=== PATIENT | male | born 1980 | race Caucasian/White ===

== ENCOUNTER 2016-10-02 07:59 | Inpatient (IN) | payer MEDICAID ==
[~2016-10-02] VITALS: Ht 167.6 cm; Wt 78.6 kg
--- NOTE | ~2016-10-02 | ECH ---
Transthoracic Echocardiography Report (TTE) Demographics Patient Name NIRAV VÁSQUEZ Date of Study 10/07/2016 ROB Patient Number [id number] Visit Number [id number] Date of 1980 Room Number 308 Gender Male Number Age 36 year(s) Referring Ivan Britton MD Pharmacy Services Representative Leidy Martinez Physician Mariza Coleman MD [facility] Physician Interpreting [facility] Sean Signal Processing Engineer Physician R Supervising Ordering Mariza Coleman MD/MLP Physician Nurse Stress Family Consumer Scientist Conclusions Summary Technically adequate exam. The estimated left ventricular ejection fraction is 55%. Diastolic assessment reveals Grade I diastolic dysfunction. No significant valvular abnormalities. No evidence of significant regurgitant valvular abnormalities. Procedure Type of Study TTE procedure:Echo Complete SF. Procedure Date Date: 10/07/2016 Start: 02:07 PM Technical Quality: Adequate visualization Additional Indications:Bacteremia,Severe ETOH abuse/withdrawl Appropriate Use Criteria: 9 Height: 66 inches Weight: 180 pounds BSA: 1.91 m Rhythm: Sinus tachycardia HR: 108 bpm BP: 121/63 mmHg M-Mode/2D Measurements LV Diastolic Dimension: 5.46 cm LV Systolic Dimension: 5.25 cm LV Septum Diastolic: 0.7 cm LV PW Diastolic: 0.74 cm AO Root Dimension: 3.06 cm Cardiac Output: 5.33 l/min LA Dimension: 3.06 cm Cardiac Index: 2.79 l/min*m RV Diastolic Dimension: 3.15 cm LA volume index: 17 ml/m LVOT: 2.03 cm LVOT VTI: 15.27 cm RV Base: 2.3 cm LV Stroke volume: 49.4 ml RV Mid: 1.7 cm LV Stroke volume index: 25.86 ml/m TAPSE: 2.2 cm TDI-S': 12 cm/s Doppler Measurements AV Peak Velocity: 1.3 m/s MV Peak E-Wave: 0.64 m/s AV Peak Gradient: 6.76 mmHg MV Peak A-Wave: 0.8 m/s AV Mean Gradient: 4.51 mmHg MV E/A Ratio: 0.8 LVOT Peak Velocity: 1.09 m/s MV P1/2t: 38.5 msec AV Area (Continuity):2.7 cm MV Deceleration Time: 132.6 msec MV Area (PHT): 5.72 cm PV Peak Velocity: 0.99 m/s E' Septal Velocity: 0.1 m/s PV Peak Gradient: 3.94 mmHg E' Lateral Velocity: 0.11 m/s A' Septal Velocity: 0.12 m/s A' Lateral Velocity: 0.14 m/s RA Area: 9.6 cm Findings Left Ventricle Normal left ventricle size and function. Diastolic assessment reveals Grade I diastolic dysfunction. Right Ventricle Normal right ventricle structure and function. Left Atrium Normal left atrial size. Right Atrium Normal right atrial size. Mitral Valve Normal mitral valve structure and function. Trivial mitral regurgitation by color Doppler. Aortic Valve Normal aortic valve structure and function. Tricuspid Valve Normal tricuspid valve structure and function. Trivial tricuspid regurgitation by color Doppler. Insufficient jet to calculate pulmonary pressures. Pulmonic Valve Normal pulmonic valve structure and function. Pericardial Effusion No evidence of pericardial effusion. Miscellaneous Visualized portions of the aortic root and ascending aorta appear normal in size. Pleural Effusion No evidence of pleural effusion. Contractility Score LV regional wall motion:(0-Non visualized 1-Normal 2-Hypokinesis 3-Akinesis 4-Dyskinesis 5-Aneurysm) Signature
[~2016-10-02 07:59] MED LIST: CARAFATE DPS1 GM PO; CATAPRES-DPS0.1 MG PO; DESYREL-DPS50 MG PO; FOLVITE-DPS1 MG PO; KLOR-CON M2020 ME1 PO; LIBRIUM-DPS25 MG PO; MAALOX DPS30 ML PO; PEPCID DPS20 MG PO; PEPCID20 MG PO; PRILOSEC DPS20 MG PO; PROTONIX40 MG PO; SURFAK DPS240 MG PO; THERAPEUTIC MUL1 TAB PO; TOPROL XL DPS25 MG PO; TYLENOL325 MG PO; ZOLOFT50 MG PO
--- NOTE | 2016-10-02 21:02 | HP ---
ADMIT: 10/02/2016 RM/LOC: 308 [facility] MR#: [id number] [address] [place], [place] [address] NIRAV VÁ[place] [address] History and Physical SEX: M AGE: 36 : 1980 DATE OF SERVICE: CHIEF COMPLAINT: Intoxication and stomach pain. HISTORY OF PRESENT ILLNESS: This is a 36-year-old gentleman who admits that he was drinking "a lot" at home. His actually called 911 because she reported he was falling and saying his stomach hurt. He was brought to the emergency room, found to have a blood alcohol level of 500 with the legal cut off being 80. His electrolytes showed potassium 3.1, lipase was 836. Liver enzymes are slightly elevated as well. He had some abrasions around his head including ecchymosis around the right eye and swollen lip. He had CT scan of the head showing no obvious acute findings. He is a very poor historian. He told to ER doc stomach hurt and he just would grimace with palpation in the midline. Otherwise, history was mainly from his or from old records. The patient was hospitalized here in May of 2016, for similar reason with alcohol intoxication and elevated pancreatic enzymes. He has been through alcohol treatment in the past. Most recent that I can see was in 2008. PAST MEDICAL HISTORY: Again, is taken from old records. It is remarkable for multiple hospital admissions for alcohol use and acute intoxication. He also has prior admission for pancreatitis. There is a reported history of fatty liver disease. SOCIAL HISTORY: He is . His is the one who called 911. He reports drinking "2 bottles" of alcohol per day and past reports document that he was drinking up to a 5th of vodka daily and beer. He cannot tell me right now precisely what and how much he has been drinking. FAMILY HISTORY: Mother with heart disease. No other history is obtainable. REVIEW OF SYSTEMS: Unobtainable. The only thing he was able to explain to me is that his stomach hurts, and he waves his hand around the middle of his abdomen. When I asked him specifically about headache or vision changes, he told me no. Otherwise, he did not give me any other reports or history. PHYSICAL EXAMINATION: VITAL SIGNS: Heart rate in the 110s to 120s and blood pressure 118/82. He is afebrile, oxygen 99%, he is on 2 L of O2 because of his sound sleep and small brief episodes of apnea due to his intoxication. ENT: Purple ecchymosis and a little bit of swelling over the right eye on the upper eyelid. Sclerae are injected bilaterally. Extraocular movements appear okay, but he did not follow directions completely enough to do a good exam. There is no obvious facial droop. His upper lip is swollen with some superficial cuts on the mucosal side on the left upper lip. He extends his tongue in the midline. Tongue looks dry. There is some dried blood in the mouth, but I do not see any obvious sores that are visible. NECK: Supple. LUNGS: Sounded clear anteriorly. HEART: Regular. ADMIT: 10/02/2016 RM/LOC: 308 [facility] MR#: [id number] [address] [place] [id number] ROB NIRAV HAAS [address] [place] [address] History and Physical SEX: M AGE: 36 : 1980 ABDOMEN: With bowel sounds, but they are very quiet mainly heard on the right side. EXTREMITIES: No edema. He has a couple of scrapes and abrasions. He has a 2 cm abrasion on the left knee that is superficial and not bleeding. He is not arousable enough to do a full neurologic exam. LABORATORY WORK: Sodium 142, potassium 3.1 and on recheck was 3.4 four hours later after he had fluid. Other electrolytes are normal. His creatinine is 0.78. Bilirubin is 1.2. Albumin 3.3. AST is 406, ALT 177. His lipase is 836. Corrected calcium is 8.3. The alcohol level was 508 mg/dL and 4 hours later was 448 mg/dL after fluids. CBC is unremarkable with a white count of 8.6, platelet count 150, and hemoglobin 14.6. CT of the head. Was negative except right preseptal soft tissue swelling, and CT of the maxillofacial bones was also undertaken in the emergency room and showed no evidence of fracture. ASSESSMENT: 1. Pancreatitis. 2. Acute alcohol intoxication with chronic alcohol abuse. 3. Abrasions. 4. Hypokalemia. PLAN: The patient was admitted to intensive care. In his past records, I see multiple hospital stays for intoxication and no report of seizures. Apparently in the past, he has reported hallucinations when he is intoxicated. We will use the alcohol withdrawal protocol. He has IV fluids running to replace potassium. I will slow down the rate since his potassium level is coming up. We will also continue the "banana bag" for fluids and vitamins with thiamine. When he is more awake if he wants ADMIT: 10/02/2016 RM/LOC: 308 [facility] MR#: [id number] [address] [address] NIRAV VÁSQUEZ [address] [place] [address] History and Physical SEX: M AGE: 36 : 1980 to try to drink, we will just do ice chips for tonight and recheck his liver enzymes and lipase tomorrow before let him start on any sort of diet. We will of course consult ADTC. Looks like, he started treatment in the past about 8 years ago, and we will see if he is interested and willing in doing that again. He apparently made a comment to his that he wanted to quit drinking. I also ordered drug screen and that is pending. We will use no medical anticoagulation for VTE prophylaxis, but just use foot garments and calf garments. Total of 40 minutes was spent with the patient and reviewing records and plan of care. Tayrn Love MD/ angela JOB #: [id number] CC: Taryn Love MD, Attending Physician Taryn Love MD, Family Physician
--- NOTE | 2016-10-07 10:37 | NUR ---
[id number] VISITS, BECOMES TEARY, LEAVES RM. UNSURE IF WILL RETURN. Damaris SHIPMAN, DIE BARBER/SNU
--- NOTE | 2016-10-07 12:43 | NUR ---
[id number] DOES NOT RETURN. PT RESLESS. L UMBERTO, SUPERVISOR BOARDING/SNU
--- NOTE | 2016-10-09 08:14 | CO ---
ADMIT: 10/02/2016 RM/LOC: 308 [facility] MR#: [id number] [address] [place], [place] [address] NIRAV VÁSQUEZ [address] [place] [address] Consultation SEX: M AGE: 36 : 1980 DATE OF CONSULTATION: 10/06/2016 ATTENDING PHYSICIAN: Taryn Love MD CONSULTING PHYSICIAN: He Manriquez MD, [facility] REASON FOR REFERRAL: Altered mental status. HISTORY OF PRESENT ILLNESS: Mr. Mcintyre is a 36-year-old, predominantly Japanese- speaking male, who was admitted on 10/03/2016 for pancreatitis. He drinks 2 bottles of whiskey a day. He has been having increasing agitation, increasing need of Ativan and Haldol. Critical Care Service was consulted for treatment of this. He is on thiamine and folate. He is on CIWA protocol. He is unable give any history at the current time. He did spike a fever to 104 and was started on Rocephin today. He does have an infected right antecubital space from an IV. PHYSICAL EXAMINATION: VITAL SIGNS: T max 104.3, pulse 160, was a max, currently it is 141, respirations 20, blood pressure 120/80. GENERAL: The patient opens eyes, moving all his extremities, symmetric. NECK: Supple. EYES: Pupils reactive. LUNGS: Clear to auscultation. CV: Regular rate without murmurs, rubs, or gallops. ABDOMEN: Soft, nontender. EXTREMITIES: No cyanosis, clubbing, or edema. SKIN: Without acute lesions. Except for his left antecubital, he has purulent area where an IV was. LABORATORY DATA: Sodium 135, potassium 3.8, chloride 101, CO2 22, BUN is 6, creatinine is 0.9, phosphorus was 1.2, alkaline phosphatase 234, AST 178, LDH 204. He is receiving phosphorus today. White count 9.4, hemoglobin is 14.5, platelets are 114. No left shift. IMPRESSION: ADMIT: 10/02/2016 RM/LOC: 308 [facility] MR#: [id number] [address] [address] NIRAV VÁSQUEZ [address] [place] [address] Consultation SEX: M AGE: 36 : 1980 1. Cellulitis, probable septic thrombophlebitis. 2. Alcohol withdrawal. 3. Altered mental status secondary to #2. 4. Pancreatitis. 5. Alcoholic liver. RECOMMENDATIONS AND DISCUSSION: We will add Precedex. We will titrate his medications. He has been started on Rocephin today. I would add the vancomycin to cover for staph while he is in the hospital. We will adjust his sedation. Thank you for the consultation. He Manriquez MD, FCCP/ modl JOB #: [id number] CC: Taryn Love MD, Attending Physician Taryn Love MD, Family Physician
--- NOTE | 2016-10-10 13:09 | CO ---
ADMIT: 10/02/2016 RM/LOC: 308 [facility] MR#: [id number] [address] [place], [place] [address] NIRAV VÁSQUEZ [address] [place] [address] Consultation SEX: M AGE: 36 : 1980 DATE OF CONSULTATION: 10/07/2016 ATTENDING PHYSICIAN: Taryn Love MD CONSULTING PHYSICIAN: Anny Dawkins MD REASON FOR CONSULT: Methicillin-sensitive Staphylococcus aureus bacteremia. Thank you Dr. Manriquez, for the consult and involving me in this patient's care. HISTORY OF PRESENT ILLNESS: Mr. Mcintyre is a 36-year-old man with history of heavy alcohol use, who came in intoxicated and complaining of abdominal pain on October 02, 2016. He was found to have blood alcohol level of 500 and elevated amylase and lipase. He was admitted to ICU for alcohol withdrawal and on CIWA protocol. He had some abrasions and ecchymosis around his right eye and CAT scan showed preseptal soft tissue swelling and no fracture. During his hospital course, he was noted to have increased redness and purulent drainage from his left forearm peripheral IV line, which was removed last week. He developed fever of 104 yesterday and his blood cultures are growing methicillin-sensitive Staphylococcus aureus. He was started on ceftriaxone and vancomycin yesterday. He is unable to give any history at this time and is moaning. PAST MEDICAL HISTORY: 1. Heavy alcohol use per the notes. 2. Pancreatitis. 3. Fatty liver. ALLERGIES: NO KNOWN DRUG ALLERGIES. CURRENT MEDICATIONS: Reviewed. SOCIAL HISTORY: He is . He lives at home with his . Per prior notes, he drinks 2 bottles of alcohol everyday. FAMILY HISTORY: Significant for heart disease in his mother. REVIEW OF SYSTEMS: Ten-point review of systems unable to obtain as the patient currently is not answering to the questions. He only reports abdominal pain. PHYSICAL EXAMINATION: VITAL SIGNS: Current temperature 101, T-max 102.7, heart rate 108, respirations 20, blood pressure 129/63, 95% on room air. GENERAL: No acute distress. HEENT. Head normocephalic and atraumatic. Oral mucosa dry. Foul breath. LYMPH: No palpable anterior/posterior cervical or supraclavicular lymphadenopathy. CHEST: Decreased breath sounds bilaterally. Poor inspiratory effort. ADMIT: 10/02/2016 RM/LOC: 308 [facility] MR#: [id number] [address] [address] NIRAV VÁSQUEZ [address] [place] [address] Consultation SEX: M AGE: 36 : 1980 CARDIOVASCULAR: S1 and S2 heard. Tachycardia. ABDOMEN: Soft. Mild diffuse tenderness. Active bowel sounds. EXTREMITIES: No peripheral edema. MUSCULOSKELETAL: Increased erythema noted on the left antecubital fossa around the peripheral line, which was removed. PSYCH: Currently sedated but arousable. DATA REVIEW: Blood cultures from yesterday, both bottles growing Staphylococcus aureus, methicillin sensitive. Left elbow culture is also growing Staphylococcus aureus. CBC today shows white count of 8.1, hemoglobin 11.6, platelets 123. CMP shows potassium of 3.3, creatinine 0.9. AST of 267, ALT 172. CK of 356. ASSESSMENT AND PLAN: 1. Methicillin-sensitive Staphylococcus aureus bacteremia, likely source is skin and left forearm septic thrombophlebitis. At this time, I will stop his ceftriaxone and vancomycin and narrow antibiotics down to oxacillin 2 g every 4 hours. Given persistent fevers, I would also like to do an echocardiogram to rule out any endocarditis. 2. Abdominal pain. Given the persistent fevers, I would do CT of abdomen and pelvis to rule out any underlying abscess. 3. Alcohol withdrawal. 4. Hypokalemia. 5. Right preseptal cellulitis, which is improved. 6. Increased transaminases, likely secondary to alcohol use. 7. Fatty liver. 8. History of heavy alcohol use. I will also check HIV test, hepatitis C antibody, and hepatitis B surface antigen. Thank you for the consult and I will continue to follow the patient. Anny Dawkins MD/ angela JOB #: [id number] CC: Taryn Love MD, Attending Physician Taryn Love MD, Family Physician
--- NOTE | 2016-10-13 08:55 | CO ---
ADMIT: 10/02/2016 RM/LOC: 308 [facility] MR#: [id number] [address] [place], [place] [address] [place] [address] Consultation Report SEX: M AGE: 36 : 1980 CORRECTED: 10/10/2016 0545 NJV DATE OF CONSULTATION: 10/08/2016 ATTENDING PHYSICIAN: Taryn Love MD CONSULTING PHYSICIAN: Corby Ball MD HISTORY OF PRESENT ILLNESS: The patient is a 36-year-old male, alcoholic, who has been admitted due to feeling poorly, has been in an alcohol detox, has had some epigastric pain, who has had I believe some fevers and night sweats, who had a CT scan. Consultation is for rule out possible appendicitis as it was mildly enlarged but no inflammatory changes around. No fluid around the appendix. He was noted on blood cultures to have methicillin sensitive Staph aureus bacteremia, we were asked to see to rule out appendicitis. The patient is confused, unable to give a great history, mentions some midepigastric pain. His past medical history, surgical history, allergies, medications, family history, and social history outlined in Nick Miranda's note. REVIEW OF SYSTEMS: Hard to obtain due to his current mental state. PHYSICAL EXAMINATION: VITAL SIGNS: Had a low grade temp. HEART: Regular. LUNGS: Clear. ABDOMEN: Soft, nondistended and tender to deep palpation in the epigastrium. He has no lower abdominal discomfort. ASSESSMENT AND PLAN: The patient is a 36-year-old with Gram-positive bacteremia, going through alcohol withdrawal with no lower abdominal pain, was essentially normal CT scan. I suspect he does not have appendicitis. We will take a watchful waiting approach to allow him to recover from his alcohol withdrawal issues and continued antibiotics for his Gram-positive bacteremia. Corby Ball MD/ angela JOB #: [id number] CC: Taryn Love MD, Attending Physician Taryn Love MD, Family Physician CORRECTED: 10/10/2016 0545 NJV
--- NOTE | 2016-10-13 08:55 | CO ---
ADMIT: 10/02/2016 RM/LOC: 308 [facility] MR#: [id number] [address] [address] DANIE VÁSQUEZ [address] [place] [address] Consultation SEX: M AGE: 36 : 1980 DATE OF CONSULTATION: 10/08/2016 ATTENDING PHYSICIAN: Taryn Love MD CONSULTING PHYSICIAN: Corby Ball MD REASON FOR CONSULTATION: Abdominal pain, dilated appendix seen on CT. HISTORY OF PRESENT ILLNESS: Danie is a 36-year-old, male, who apparently has been on a one-week binge of drinking excessively, approximately two bottles of strong spirits a day with his friends. Apparently, he was found in the emergency room with a blood alcohol level of 500. Since then, he has been admitted to the ICU and has been treated with alcohol withdrawal protocol. Currently, he has been taking morphine and on a Precedex drip. Prior to the admission, according to hospital records, the patient has been having some abdominal pain. History was pretty hard to obtain as the patient has been going in and out of confusion since his admission. Today, the patient states that he has been having some abdominal pain in the epigastric region, however, his chest pain is worse. He has had some nausea, but denies any emesis. He does state some fevers, chills, and night sweats going on for the last several nights. He denies any diarrhea, constipation, hematemesis, or dark or bloody stools. PAST MEDICAL HISTORY: 1. Numerous hospitalizations for alcohol use and intoxication. 2. Fatty liver disease. 3. Current hospitalization positive for MSSA positive bacteremia. PAST SURGICAL HISTORY: One prior EGD performed by Dr. Ellis in 2016. ALLERGIES: NO KNOWN DRUG ALLERGIES. MEDICATIONS: Well documented in chart. FAMILY HISTORY: Noncontributory. SOCIAL HISTORY: Again, history of heavy alcohol use. He denies any tobacco or illicit drug use. REVIEW OF SYSTEMS: CONSTITUTIONAL: Positive for fever, chills, or night sweats. The rest of comprehensive 10-point review of systems was performed and all other systems are negative. PHYSICAL EXAMINATION: GENERAL: The patient is in no acute distress. However, he is confused. HEENT: Head is normocephalic and atraumatic. EOMS are intact. Conjunctivae free of icterus, erythema, or pallor. Pinnae, free of deformities. Nose, midline. No tracheal deviation. NECK: Supple. ADMIT: 10/02/2016 RM/LOC: 308 [facility] MR#: [id number] [address] [address] ROB WALDODANIE [address] [place] [address] Consultation SEX: M AGE: 36 : 1980 SKIN: Negative for jaundice, clubbing, edema, pallor, or cyanosis. LUNGS: Clear to auscultation bilaterally. Normal respiratory effort. Tender to palpation along the sternum. HEART: Distal pulses intact. Regular rate and rhythm. No murmurs noted. ABDOMEN: Soft, nondistended, tender in epigastric region. Negative McBurney point. Negative rebound tenderness. Negative psoas sign. Negative obturator sign. NEURO: Cranial nerves II through XII grossly intact. LABORATORY DATA: White blood cell count 7.6, hemoglobin 12.6. CT of abdomen and pelvis, shows mildly dilated appendix, however, no periappendiceal fat stranding unlikely to be appendicitis. I did also consult Dr. Ellis who is present and he reviewed the CT, who believes this is not suggestive of acute appendicitis. ASSESSMENT: 1. Alcohol withdrawal, on alcohol withdrawal protocol. 2. Methicillin-susceptible staphylococcus aureus positive bacteremia. 3. Pleurisy. 4. CT findings of dilated appendix, concerns for acute appendicitis. PLAN: Given the mildly prominent appendix this is an intermediate for appendicitis; however, clinically, the patient does not look like he has acute appendicitis and he has normal white count. Given the other pathology that is occurring at this time, I find it is most reasonable to workup his chest concerns and treat the bacteremia before chasing his appendix. I discussed this plan with the patient to which he has agreement of this plan, had all his questions answered, and would like to proceed. I will also notify Dr. Ball of this consult, and base treatment of his recommendations as well. Thanks for the consultation of this patient. LEONEL Goodwin / Corby Ball MD / angela JOB #: [id number] CC: Taryn Love MD, Attending Physician Taryn Love MD, Family Physician
[2016-10-13] MEDS ORDERED: ACETAMINOPHEN325 MG PO (11:07)
[2016-10-13] MEDS ORDERED: AMOXICILLIN875 MG PO (11:08)
--- NOTE | 2016-10-29 08:17 | DS ---
ADMIT: 10/02/2016 RM/LOC: 419 [facility] MR#: [id number] [id number] [place], [place] [address] ROB [place] [address] General Discharge Summary SEX: M AGE: 36 : 1980 ADMISSION DATE: 10/02/2016 DISCHARGE DATE: 10/12/2016 FINAL DIAGNOSES: 1. Acute alcohol intoxication. 2. Chronic alcohol abuse. 3. Pancreatitis. 4. Hypokalemia. 5. Hypophosphatemia secondary to chronic alcohol use. 6. Chronic hepatitis secondary to alcohol and fatty liver disease. 7. Delirium related to alcohol withdrawal. HOSPITAL COURSE: The patient was admitted with an alcohol level of 500 and was acutely intoxicated, confused, delirious with evidence of self-neglect. He had bruises and cuts on his face and acquaintances said he had been falling down. He was admitted to intensive care unit. He was given fluids, Ativan, monitored closely for withdrawal, and alcohol withdrawal protocol was followed. Pancreatic enzymes were elevated and are listed below. We used IV fluid hydration and kept him n.p.o. Initially. The patient had evidence of skin infection on his elbow noted on the 3rd day. He had Tdap vaccine given. The patient had increased agitation and elevated CIWA scores. Critical Care was consulted for assistance during his severe withdrawal. The patient was started on Precedex. Dr. Manriquez followed him from a critical care standpoint. He was also started on vancomycin and midline central line was placed. He started spiking fevers on the which was the reason for antibiotic and midline catheter. Blood cultures revealed MSSA and the patient was already on vancomycin and Rocephin. Infectious Disease consult was obtained and blood cultures were redrawn. Viral studies were done. Dr. Dawkins stopped his vancomycin and ceftriaxone and started oxacillin based on cultures. By 10/08, he had intermittent episodes of alertness but was still very disoriented. He was still spiking fevers. Chest CT was done and revealed some right lower lobe pleural thickening but no clot and no pneumonia. His alcoholic encephalopathy persisted. Because the patient was so agitated and still spiking fevers, Surgery was consulted as well. There was no evidence of acute appendicitis or other acute surgical problem on his scans. By 10/09, he was more alert and we allowed him to start eating. Temperatures had defervesced. He was transferred out of the intensive care unit on 10/09. Later that night, the patient became more agitated and pulled out his IV's and refused to let them be resumed. On 10/10, the patient was refusing telemetry, refusing vital signs. He was inappropriate. He was able to get up and around. He was still confused. He could not really tell me much about his home support system. He did allow another attempt at IV lines, but once one was placed, he pulled it again. Antibiotics were switched over to oral by Infectious Disease. ADMIT: 10/02/2016 RM/LOC: 419 [facility] MR#: [id number] [facility] [address] [address] NIRAV VÁSQUEZ [address] [place] [address] General Discharge Summary SEX: M AGE: 36 : 1980 By 10/12/2016, temperatures were down, the patient was tolerating oral antibiotics. His sensorium was clear. He was dismissed home. He was notified by Infectious Disease and by myself and partners that by pulling out his IV's and not completing IV therapy for his blood cultures that he was risking inadequate treatment. He voiced understanding and said he would leave the hospital. Decision was made to let him be dismissed with oral Augmentin for 3 weeks. He is also to take a multivitamin daily and cannot drink alcohol. He was referred to [facility] and had visits by their staff during the hospital stay. He declined active alcohol treatment. The patient was told to make an appointment with myself in 1 week. Significant laboratory during this hospital stay included hemoglobin around 11- 12. By dismissal, it was 11.2. Platelet count had a low point of 87 and most were around 120. Coagulation studies were normal. Electrolytes initially revealed a low potassium, but that was replaced. Total bilirubin was normal. Albumin low at 2.7 on dismissal. AST was elevated in the 300s initially and down to 76 on dismissal. ALT was 164 on dismissal. His lipase was initially 1898 and down to 443 prior to discharge. Urine drug screen was negative and his initial alcohol level was 500. Hepatitis B surface antigen and hepatitis C antibodies were negative, and HIV was negative as well. Taryn Love MD/ angela JOB #: [id number] CC: Taryn Love MD, Attending Physician Taryn Love MD, Family Physician
--- NOTE | 2016-11-26 07:35 | ER ---
ADMIT: 10/02/2016 RM/LOC: 419 [facility] MR#: [id number] [address] [facility] [address] [place], [place] [address] NIRAV VÁSQUEZ [address] [place] [address] Emergency Room Report SEX: M AGE: 36 : 1980 DATE: 10/02/2016 ADDENDUM: See T-sheet for complete H and P. The patient is a 36-year-old male, presents to the ER by EMS after called EMS because he was drunk and had fallen in the house. He was bleeding from his lip and his nose, she wanted to evaluate it. He is an extremely poor historian primarily because he is so intoxicated. is able to provide some history and apparently, he has no chronic diseases, but does have a possible history of pancreatitis. I cannot obtain review of systems in this patient. He apparently is not taking any medications and he is known to have a long history of alcohol abuse. Our workup in the ER consisted of a CT head and facial bones. I also did some labs in the emergency department, which shows he has an elevated lipase and blood alcohol level. At this point, I have determined the patient is not safe to be discharged home, so he will be admitted to [facility] and I spoke to Dr. Love, who is graciously admitting the patient to her service. DIAGNOSES: 1. Acute pancreatitis. 2. Alcohol intoxication and abuse. 3. Hypokalemia. 4. Multiple abrasions. Mino Wilkins MD/ angela JOB #: [id number] CC: Taryn Love MD, Attending Physician Taryn Love MD, Family Physician
[2016-12-18] MEDS ORDERED: ZANTAC DPS150 MG PO (11:50)
[2017-03-05] MEDS ORDERED: MAG-OX400 MG PO (14:16)
[2017-03-05] MEDS ORDERED: FOLVITE-DPS1 MG PO (14:16)
[2017-03-05] MEDS ORDERED: CARAFATE DPS1 GM PO (14:16)
[2017-03-05] MEDS ORDERED: DAILY MULTIPLE1 EAC1 PO (14:16)
[2017-03-05] MEDS ORDERED: KLOR-CON M2020 ME1 PO (14:16)
[2017-03-05] MEDS ORDERED: MAALOX DPS30 ML PO (14:17)
[2017-03-05] MEDS ORDERED: PEPCID DPS20 MG PO (14:17)
[2017-03-05] MEDS ORDERED: TYLENOL DPS325 MG PO (14:17)
[2017-03-05] MEDS ORDERED: VITAMIN B-1100 M1 PO (14:17)
[2017-03-05] MEDS ORDERED: LIBRIUM-DPS25 MG PO (14:18)
== END 2016-10-12 13:50 | disposition home or self-care (01) | DRG 439 ==
LOC: ER 07:59 → 3ICU 10:40 → 4PCU 10-11 11:19
PROVIDERS: ADMIT Family Medicine
PROC: HZ2ZZZZ Detoxification Services for Substance Abuse Treatment (ICD-10-PCS; principal; 2016-10-02)
DX: K85.20 Alcohol induced acute pancreatitis without necrosis or infection (principal); R78.81 Bacteremia; F10.231 Alcohol dependence with withdrawal delirium; G31.2 Degeneration of nervous system due to alcohol; L03.114 Cellulitis of left upper limb; L03.213 Periorbital cellulitis; B95.61 Methicillin susceptible Staphylococcus aureus infection as the cause of diseases classified elsewhere; I80.8 Phlebitis and thrombophlebitis of other sites; F10.229 Alcohol dependence with intoxication, unspecified; K70.10 Alcoholic hepatitis without ascites; E83.39 Other disorders of phosphorus metabolism; E87.6 Hypokalemia; Y90.8 Blood alcohol level of 240 mg/100 ml or more; Y95 Nosocomial condition

== ENCOUNTER 2016-12-15 22:05 | Observation (INO) | payer MEDICAID ==
[~2016-12-15] VITALS: Ht 167.6 cm; Wt 80.3 kg
--- NOTE | ~2016-12-15 | HP ---
ADMIT: 12/15/2016 RM/LOC: 315 [facility] MR#: [id number] 26[address] [facility] [address] [place], [place] [address] DANIE VÁSQUEZ [address] [place] [address] History and Physical SEX: M AGE: 36 : 1980 DATE OF SERVICE: CHIEF COMPLAINT: Cognitive change and alcohol intoxication. HISTORY OF PRESENT ILLNESS: Danie is a 36-year-old alcoholic with multiple admissions for alcohol intoxication who was admitted at this time with similar issues. He has been at home. He had been drinking heavily, he became obtunded and EMS was summoned. Brought to the emergency room. CT scan of the head was unremarkable. His alcohol level was 484. He is minimally responsive and is admitted at this time for support. In the past, he has multiple admissions for alcoholism as well as going into DTs with the most recent being in October. At this time, he is not able to give a big history. He does answer questions with regard to current symptoms, but otherwise is not able to give me any other history. PAST MEDICAL HISTORY: History of pancreatitis, history of methicillin sensitive Staph aureus bacteremia back in October 2016, gastritis and esophagitis on EGD 05/26/2016, alcoholism with multiple admissions, elevated liver enzymes. MEDICATION: None. ALLERGIES: NONE THAN I AM AWARE. SOCIAL HISTORY: Apparently, he is . Reports that he drinks 2 bottles per day of some version of alcohol. No one is present. FAMILY HISTORY: Mother with heart disease according to the record. REVIEW OF SYSTEMS: Not obtainable because he is delirious and acutely intoxicated. Note that his potassium was down at 3.2 and his CPK was elevated. PHYSICAL EXAMINATION: VITAL SIGNS: Blood pressure 123/86, pulse of 112, respirations 20, temp 97.2. GENERAL: This is a well-developed, well-nourished, male, currently lying in bed. He was not very conversant. He is arousable and does answer short questions of yes and no but that is about it. HEENT: Normocephalic and atraumatic. Conjunctiva are little bit injected. Maybe even a little bit of a yellow component to them. Mucous membranes are dry. NECK: Supple. LUNGS: Diminished. CARDIOVASCULAR: Regular to tachycardic. ABDOMEN: Soft. : Rectal is deferred. EXTREMITIES: Left thenar eminence with some old wounds. No edema. ADMIT: 12/15/2016 RM/LOC: 315 [facility] MR#: [id number] [address] [address] ROB WALDODANIE AGEE [address] [place] [address] History and Physical SEX: M AGE: 36 : 1980 IMPRESSION: 1. Acute alcohol intoxication. 2. Hypokalemia at 3.2. 3. Elevated liver enzymes likely due to acute alcohol intoxication. 4. Elevated CPK-likely secondary to trauma. I do not believe this is cardiac. 5. Delirium. DISCUSSION: We will go ahead and admit at this time. Unfortunately, no other choice. We will fluid resuscitate, supplement potassium. He has gone through DTs. Hopefully, he will just be here short time and be able to leave. His prognosis remains extremely poor because of his continued alcohol consumption. Korin Cazares MD/ angela JOB #: [id number] CC: Korin Cazares MD, Attending Physician Korin Cazares MD, Family Physician
[~2016-12-15 22:05] MED LIST changes: +ACETAMINOPHEN325 MG PO; +AMOXICILLIN875 MG PO
--- NOTE | 2016-12-16 01:03 | ER ---
ADMIT: 12/15/2016 RM/LOC: 315 [facility] MR#: [id number] 26[address] [facility] [address] [place], [place] [address] ROB WALDONIRAV [address] [place] [address] Emergency Room Report SEX: M AGE: 36 : 1980 DATE: 12/15/2016 CHIEF COMPLAINT: Delirium. HISTORY OF PRESENT ILLNESS: The patient is a 36-year-old, , alcoholic, transported by [facility] from home because of presumed abdominal pain and drunken stupor. The patient was hospitalized October 02 through October 12 due to pancreatitis and severe alcohol withdrawal, requiring ICU care including Precedex and sepsis syndrome from cellulitis from IV site antecubital fossa. Blood sugar en route 117. PAST MEDICAL HISTORY: OPERATIONS: None. ILLNESSES: Pancreatitis, alcoholic liver disease, hypokalemia, hypophosphatemia, severe alcohol withdrawal syndrome. ALLERGIES: NONE. MEDICATIONS: None SOCIAL HISTORY: . Nonsmoker. No illicit drugs. Drinks a 5th of vodka a day, occasionally beer. FAMILY HISTORY: Negative per chart review. REVIEW OF SYSTEMS: Unavailable due to altered level of consciousness. PHYSICAL EXAMINATION: VITAL SIGNS: Temperature 97.2, pulse 112, respirations 20, BP 123/86, SaO2 of 91% on 2 L. GENERAL: Lethargic, obtunded without evidence of trauma, jaundice, or diaphoresis. HEENT: Normocephalic. No evidence of epistaxis, rhinorrhea, or otorrhea. NECK: Supple. Nontender. No thyromegaly. CHEST: Clear. Breath sounds equal. HEART: Tachycardic, regular without murmur, gallop, or edema. ABDOMEN: Obese, nontender, nondistended. Bowel sounds hypoactive. EXTREMITIES: No evidence of injury. NEURO: EOMI. PERRLA. Moves all extremities to painful stimuli, will not otherwise cooperate. MENTAL STATUS: Obtunded, delirious. At times, will moan in pain. CIWA score 4 for tachycardia, apparent agitation due to intermittent yelling in pain and nausea from cartridge feeder report, though no vomiting was witnessed. MEDICAL DECISION MAKING: The patient was given liter of normal saline followed by banana bag, Ativan 1 mg IV push for agitation and gabapentin [address] head shows no acute findings. Normal CBC. CK 1041, with normal MB and troponin, potassium 3.5, glucose 160, LVH 294, normal magnesium, lactic elevated at 5.9, normal TSH, lipase 152, alcohol 484. ABGs 2 L; pH 7.39, pCO2 ADMIT: 12/15/2016 RM/LOC: 315 [facility] MR#: [id number] [address] [address] NIRAV VÁSQUEZ [address] [place] [address] Emergency Room Report SEX: M AGE: 36 : 1980 of 44, PO2 of 93. UA; 1+ blood and protein after being cathed. EKG showed sinus rhythm, rate of [address]-T or Q-wave change. Discussed case with Dr. Cazares, who agreed and gave orders for PCU admission. Aware that he screens positive for sepsis and had severe alcohol withdrawal syndrome in the recent past. DIAGNOSES: 1. Acute alcoholic intoxication associated with severe alcohol withdrawal syndrome. 2. Alcoholic liver disease. RECOMMENDATION: Admit inpatient PCU for Dr. Cazares. ADMISSION/DISCHARGE CONDITION: Fair. CODE STATUS: The patient is a full code. Lasha Parra MD/ angela JOB #: [id number] CC: Korin Cazares MD, Attending Physician Korin Cazares MD, Family Physician Korin Cazares MD
--- NOTE | 2016-12-16 15:41 | NUR ---
Received SAD person referral from ED. Pt was admitted. Pt was intoxicated on admit.
[2016-12-18] MEDS ORDERED: ZANTAC DPS150 MG PO (11:50)
--- NOTE | 2016-12-29 08:41 | DS ---
ADMIT: 12/15/2016 RM/LOC: 431 [facility] MR#: [id number] [address] [address] DANIE VÁSQUEZ [address] [place] [address] Discharge Summary SEX: M AGE: 36 : 1980 ADMISSION DATE: 12/15/2016 DISCHARGE DATE: 12/17/2016 DIAGNOSES: 1. Alcohol intoxication. 2. Hypokalemia. 3. Elevated liver enzymes. 4. Elevated CPK (creatine phosphokinase) due to mild rhabdomyolysis. 5. Delirium due to alcohol. PROCEDURES: CT of the head 12/15/2016. CONSULTS: None. REASON FOR HOSPITALIZATION: Cognitive change and delirium due to alcohol intoxication. See dictated H and P. LABORATORY AND X-RAY DATA: CT of the head was negative. Ammonia level 21. ABGs with a pH 7.38, pCO2 of 42, PO2 is 93, sodium 140, potassium 3.2 up to 3.6, chloride 103, CO2 31, BUN is 5, creatinine 0.7, glucose 88, calcium 8.5, phosphorus 2.7, total bilirubin 2.1 direct to 0.8, total protein 6.5, albumin 3.5, alkaline phosphatase 156 down to 145, AST 105 down to 89, ALT 60, lipase 152, magnesium 1.8, GFR 123, CPK 1041 down to 691, troponin less than 0.015. Tylenol level less than 2, alcohol level 484 on admission. TSH 0.973, free T4 0.97, CRP less than 0.29, white count 5.9, hemoglobin 13.7, platelet count 237, drug screen was negative, urine is unremarkable. Blood culture x1 is negative so far. 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 He was started on the DT protocol but did not require much in terms of medications. He was hydrated with normal saline. Potassium was supplemented. His sugar was noted to be a little bit elevated so Accu-Cheks ADMIT: 12/15/2016 RM/LOC: 431 [facility] MR#: [id number] [address] [address] ROB WALDODANIE AGEE [address] [place] [address] Discharge Summary SEX: M AGE: 36 : 1980 were followed and unremarkable. Through his course of his hospital stay, he just required a couple doses of Ativan on 12/16/2016. Stable. Medicaid would not allow inpatient status, so 48 hours is what we were able to do. Thankfully, he did not show any signs of active withdrawal and was subsequently dismissed. DISCHARGE MEDICATIONS: Zantac 150 b.i.d. He will do a high potassium diet. He is to call once he is home for followup in 3-4 weeks. I suspect he will not do this due to his noncompliance and continued alcohol ingestion. He was offered treatment but declined as usual. Overall prognosis is poor. Time spent 25 minutes. Korin Cazares MD/ lorena JOB #: [id number] CC: Korin Cazares MD, Attending Physician Korin Cazares MD, Family Physician
[2017-03-05] MEDS ORDERED: CARAFATE DPS1 GM PO (14:16)
[2017-03-05] MEDS ORDERED: KLOR-CON M2020 ME1 PO (14:16)
[2017-03-05] MEDS ORDERED: MAG-OX400 MG PO (14:16)
[2017-03-05] MEDS ORDERED: FOLVITE-DPS1 MG PO (14:16)
[2017-03-05] MEDS ORDERED: DAILY MULTIPLE1 EAC1 PO (14:16)
[2017-03-05] MEDS ORDERED: VITAMIN B-1100 M1 PO (14:17)
[2017-03-05] MEDS ORDERED: MAALOX DPS30 ML PO (14:17)
[2017-03-05] MEDS ORDERED: TYLENOL DPS325 MG PO (14:17)
[2017-03-05] MEDS ORDERED: PEPCID DPS20 MG PO (14:17)
[2017-03-05] MEDS ORDERED: LIBRIUM-DPS25 MG PO (14:18)
== END 2016-12-17 11:37 | disposition home or self-care (01) ==
LOC: ER 22:05 → 4PCU 23:39 → 3ICU 23:39 → 4PCU 23:39
PROVIDERS: ADMIT Internal Medicine
PROC: HZ2ZZZZ Detoxification Services for Substance Abuse Treatment (ICD-10-PCS; principal; 2016-12-15)
DX: F10.121 Alcohol abuse with intoxication delirium (principal); E87.6 Hypokalemia; R74.0 Nonspecific elevation of levels of transaminase and lactic acid dehydrogenase [LDH]; R74.8 Abnormal levels of other serum enzymes